=== PATIENT | female | born 1930 | race Caucasian/White ===

== ENCOUNTER 2017-07-10 13:43 | Outpatient (CLI) | payer MEDICARE, OTHER ==
[~2017-07-10 13:43] MED LIST: BAYER CHEWABLE81 MG PO; CELEXA20 MG PO; DICLOFENAC SODI50 MG PO; NORVASC5 MG PO; PROTONIX20 MG PO; SYNTHROID75 MCG PO; VALIUM 2 MG TAB2 MG PO
[2017-07-10] MEDS ORDERED: LEXAPRO10 MG PO (14:55)
[2017-07-10 15:03] VITALS: BP 183/78; BMI 21.4
--- NOTE | 2017-07-10 15:08 | NUR ---
1450- PROLIA INJECTION TO RIGHT ARM LOT#:[id number] EXP:05/10
== END 2017-07-10 15:08 | disposition home or self-care (01) ==
LOC: D.OPS 13:43
DX: M81.0 Age-related osteoporosis without current pathological fracture (principal)

== ENCOUNTER 2018-01-28 11:59 | Outpatient (CLI) | payer MEDICARE, OTHER ==
[~2018-01-28] VITALS: Ht 157.5 cm; Wt 54.5 kg
[~2018-01-28 11:59] MED LIST changes: +LEXAPRO10 MG PO
[2018-01-28 12:23] VITALS: BP 137/64; Ht 157.5 cm; Wt 54.5 kg
== END 2018-01-28 12:35 | disposition home or self-care (01) ==
LOC: D.OPS 11:59
DX: M81.0 Age-related osteoporosis without current pathological fracture (principal)